=== PATIENT | female | born 1985 | race African-American/Black ===

== ENCOUNTER 2021-05-31 18:10 | Emergency (ER) | payer MEDICAID ==
[~2021-05-31] VITALS: Ht 162.6 cm; Wt 81.0 kg
[2021-05-31 20:44] LABS: BASOPHILS % 0.3 % (0.0-2.0); EOSINOPHILS % 0.3 % (0.0-5.0); HEMATOCRIT. 38.8 % (36.0-48.0); HEMOGLOBIN. 13.1 g/dL (12.0-16.0); LYMPHOCYTES % 9.4 % (20.0-50.0); MEAN CORPUSCULAR HEMOGLOBIN 29.6 pg (28.0-32.0); MEAN CORPUSCULAR VOLUME 87.9 fL (81.0-99.0); MEAN PLATELET VOLUME 8.3 fl (7.4-10.4); MONOCYTES % 9.6 % (2.0-8.0); NEUTROPHILS % 80.4 % (40.0-76.0); PLATELET 304 x1000/uL (130-400); RED BLOOD CELL COUNT 4.42 mill/uL (4.2-5.4); RED CELL DISTRIBUTION WIDTH 12.4 % (11.6-14.6)
[2021-05-31 20:52] LABS: CHLORIDE 98 mEq/L (98-107)
[2021-05-31 20:55] LABS: HCG SCREEN NEGATIVE
[2021-05-31 20:57] LABS: CLARITY URINE CLEAR (CLEAR); COLOR URINE DARK YELLOW (YELLOW); KETONES URINE 4+ (NEGATIVE); LEUKOCYTE ESTERASE URINE 1+ (NEGATIVE); NITRITE URINE NEGATIVE (NEGATIVE); OCCULT BLOOD URINE NEGATIVE (NEGATIVE); PH URINE 6.5 (4.5-8.0); PROTEIN URINE 1+ (NEGATIVE); SPECIFIC GRAVITY URINE 1.029 (1.005-1.030)
[2021-05-31] MEDS ORDERED: KETOROLAC 60MG/2ML VIAL IM STA (21:04)
[2021-05-31] MEDS ORDERED: AMOX-424 MT (22:28)
[2021-05-31] MEDS ORDERED: IBUP-2029 MT (22:28)
[2021-05-31 22:58] VITALS: BP 125/66
== END 2021-05-31 22:59 | disposition home or self-care (01) ==
LOC: ER 18:10
DX: N12 Tubulo-interstitial nephritis, not specified as acute or chronic (principal); Z98.890 Other specified postprocedural states
CPT/HCPCS: 36415; 74018; 80053; 81003; 83690; 84703; 85025; 93005; 96372; 99285; J1885